=== PATIENT | female | born 1950 | race Caucasian/White ===

== ENCOUNTER 2017-09-22 19:12 | Inpatient (IN) ==
--- NOTE | 2017-09-23 01:05 | Internal Med History&Physical ---
<Laly Moreno H - Last Filed: 09/23/17 01:09> Date of Encounter: 09/23/17 Time of Encounter: 01:03 Internal Medicine - H&P: HPI Chief complaint: abdominal pain Admitted From: Emergency Dept Plans for Post Hospital Care: Home History of present illness: Ms. Guerra is a 67 year old female with past medical history of HLD, HTN, and migraines who presents to [facility] on 09/22/2017 as a transfer from [facility] emergency department. Per patient, she states she was visiting her father on Thursday and they were eating out. She developed acute onset squeezing chest pain and shortness of breath which quickly evolved into a burning feeling in her stomach. She became nauseated and began to vomit up emesis that she describes as a black milkshake. She states her stomach felt incredibly bloated at that time. She reports nausea and vomiting all throughout Thursday evening. Thursday morning she awoke, the nausea and vomiting had resolved however she had persistent abdominal pain. Her pain is described as a burning sensation and persisted throughout the day Thursday and Thursday. She was able to get into a doctor's appointment with Dr. Joy on Thursday who saw her jaundice and transferred her to the emergency department. In [facility] ED, patient's EKG showed normal sinus rhythm with a rate of 93 bpm. Troponins were negative. Patient's abnormal labs included a total bili of 10.6 , AST of 165, ALT of 460, direct bilirubin of 6.23, alkaline phosphatase of 146. Her INR was 1.2 and lactic acid 1.09. Sodium 134, Potassium 2.8, Chloride 91, Bicarb 31, creatinine 0.70. Urinalysis showed large blood, 5-10 RBCs per high-power field, and large leukocyte esterase. She underwent an MRCP which demonstrated choledocholithiasis with marked dilation of the common bile duct and common hepatic duct as well as mild dilation of the central intrahepatic bile duct. Patient was given a bolus of fluid, IV Zosyn, and had her potassium repleted. Urine and blood cultures were obtained while at [facility]. Subsequently, patient was transferred to a [facility]. Currently, patient denies any chest pain, palpitations, shortness of breath, or diaphoresis. She denies any diarrhea, nausea, vomiting, hematemesis, coffee- ground emesis, or hematochezia. She does report gross hematuria but denies dysuria, urinary frequency or urinary incontinence. She denies any focal neurological weakness or headaches. She denies any dizziness, lightheadedness, or vertigo. Past Med Surg Social Fam HX - Past Medical History Attestation: Yes The following information was validated with the patient. Source: patient, old records reviewed Medical history: cancer, hyperlipidemia, hypertension, other Psychiatric history: no psych history - Past Surgical History Surgical History: appendectomy, cancer surgery, cholecystectomy, hysterectomy - Social History Smoking Status: Never smoker Alcohol use: none Drug use: none Internal Medicine - H&P: Meds Aspirin/Acetaminophen/Caffeine [Excedrin Extra Strength Caplet] 2 each PO Q6H PRN 09/22/17 [History] Bismuth Subsalicylate [Pepto-Bismol] PRN 09/22/17 [History] Hydrochlorothiazide [Microzide] 12.5 mg PO DAILY 09/22/17 [History] Loperamide HCl [Imodium A-D] 2 mg PO PRN 09/22/17 [History] Multivitamin PO DAILY 09/22/17 [History] Potassium Chloride 10 meq PO DAILY 09/22/17 [History] amLODIPine [Norvasc] 10 mg PO DAILY 09/22/17 [History] 3 Allergy/AdvReac Type Severity Reaction Status Date / Time atorvastatin [From Lipitor] Allergy Cramping Verified 09/22/17 22:05 of the Muscles Sulfa (Sulfonamide Allergy Hives Verified 09/22/17 22:05 Antibiotics) Aspertame Allergy Headache Uncoded 09/22/17 22:17 All Systems PM: A 10-system review of systems was performed and is negative for pertinent findings except as documented above in the HPI. - Constitutional Constitutional: anorexia, no chills, no fever(s), no night sweats, no weakness, no weight gain, no weight loss - EENT Eyes: no change in vision, no other visual disturbances Nose, mouth and throat: no nasal congestion, no nasal discharge - Cardiovascular Cardiovascular ROS IM: no chest pain, no claudication, no diaphoresis, no dyspnea, no dyspnea on exertion, no irregular heart rhythm, no lightheadedness, no orthopnea, no palpitations - Respiratory Respiratory: no cough, no dyspnea, no chest congestion - Gastrointestinal Gastrointestinal: abdominal pain (epigastric, upper mid abdominal pain), no coffee ground emesis, no diarrhea, no hematemesis, no hematochezia, no loose stools, no melena, no nausea, no vomiting - Musculoskeletal Musculoskeletal ROS IM: no arthralgias, no limited range of motion - Integumentary Integumentary IM: jaundice, no erythema, no rash - Neurological Neurological ROS: no abnormal gait, no abnormal movements, no confusion - Endocrine Endocrine IM: no cold intolerance, no heat intolerance - Constitutional Vitals: Temp Pulse Resp BP Pulse Ox 99.2 F 107 18 163/83 94 09/22/17 21:26 09/22/17 21:26 09/22/17 21:26 09/22/17 21:09/22/17 21:26 General appearance: Present: cooperative, A&O X 3, pleasant, no acute distress, answers questions appropriately - Head Head exam: Present: atraumatic, normocephalic - Eye Eye exam: Present: conjuntiva pink, sclera anicteric - Neck Neck exam general surgery: Present: supple, trachea midline. Absent: lymphadenopathy - Respiratory Respiratory exam: Present: CTAB. Absent: accessory muscle use, rales, rhonchi, wheezes - Cardiovascular Cardiovascular exam: Present: RRR, +S1, +S2. Absent: diastolic murmur, gallop, rubs, systolic murmur - GI/Abdominal GI/Abdominal exam: Present: normal bowel sounds, soft, tenderness (Mild mid upper abdominal tenderness.), no peritoneal signs. Absent: distended, firm, guarding Additional comments: No flank tenderness bilaterally. - Extremities Exam Extremities exam: Present: warm, radial pulses palpable and symmetrical. Absent : calf tenderness, cyanotic, pedal edema - Neurological Exam Neurological exam: Present: CN II-XII intact, oriented X3, no focal deficits. Absent: pronater drift, facial droop, speech deficit - Skin Skin exam: Present: dry, intact, warm - Assessment and plan (1) Choledocholithiasis Current Visit: Yes Status: Acute Assessment and plan: 67-year-old female with choledocholithiasis on MRCP obtained at [facility]. Patient reports cholecystectomy approximately 30 years ago. -[facility] ED physician spoke with Dr. Santiago. -Patient nothing by mouth for potential ERCP tomorrow. -IV fluids, cardiac telemetry, morning labs. -IV Toradol for pain. -IV Zosyn for antibiotic coverage for potential ascending infection. (2) Gross hematuria Current Visit: Yes Status: Acute Assessment and plan: atient with bright red urine visualized and a large amount of blood on UA at outside hospital. -Unknown etiology. Patient denying any flank tenderness or dysuria. -We will repeat urinalysis and follow-up urine culture. -Consider urology consultation. (3) HTN (hypertension) Current Visit: Yes Status: Acute Assessment and plan: Resume home medications. Qualifiers: Hypertension type: unspecified Qualified Code(s): I10 - Essential (primary ) hypertension (4) DVT prophylaxis Current Visit: Yes Status: Acute Assessment and plan: EPCDs as patient likely to have endoscopic procedure tomorrow (5) UTI (urinary tract infection) Current Visit: Yes Status: Acute Assessment and plan: Urinalysis outside hospital with large leukocyte esterase and large blood. -Follow-up urine culture. -Antibiotic coverage with IV Zosyn currently as per above with choledocolithiasis. De-escalate as necessary. Qualifiers: Urinary tract infection type: site unspecified Hematuria presence: with hematuria Qualified Code(s): N39.0 - Urinary tract infection, site not specified; R31.9 - Hematuria, unspecified; R31.9 - Hematuria, unspecified - Time Spent With Patient Total time spent is greater than 50% in coordination of care (as documented) at patient's floor/unit and/or counseling patient: <MateoAlinenhangerhard - Last Filed: 09/23/17 06:06> Date of Encounter: 09/23/17 Internal Medicine - H&P: HPI History of present illness: Ms. Guerra is a 67 year old female All Systems PM: A 10-system review of systems was performed and is negative for pertinent findings except as documented above in the HPI. - Constitutional Vitals: Temp Pulse Resp BP Pulse Ox 98.6 F 81 18 119/70 91 09/23/17 04:10 09/23/17 04:10 09/23/17 04:10 09/23/17 04:10 09/23/17 04:10 - Attending Attestation I have seen and examined this patient independently. I have discussed with resident physician Dr. Lopez regarding the management plan. Agree with the documentation. - Assessment and plan (1) Choledocholithiasis Current Visit: Yes Status: Acute (2) Gross hematuria Current Visit: Yes Status: Acute (3) HTN (hypertension) Current Visit: Yes Status: Acute Qualifiers: Hypertension type: unspecified Qualified Code(s): I10 - Essential (primary ) hypertension (4) DVT prophylaxis Current Visit: Yes Status: Acute (5) UTI (urinary tract infection) Current Visit: Yes Status: Acute Qualifiers: Urinary tract infection type: site unspecified Hematuria presence: with hematuria Qualified Code(s): N39.0 - Urinary tract infection, site not specified; R31.9 - Hematuria, unspecified; R31.9 - Hematuria, unspecified - Time Spent With Patient Total time spent is greater than 50% in coordination of care (as documented) at patient's floor/unit and/or counseling patient:
[2017-09-23] MEDS ORDERED: Naloxone 0.4 MG/ML INJ IVP PRN (01:15)
[2017-09-23] MEDS ORDERED: Ketorolac 15 MG/ML VIAL IVP PRN (01:28)
[2017-09-23] MEDS: 0.9 % Sodium Chloride 1,000 ML IVC SCH ×2 (02:08→16:59)
[2017-09-23 05:48] LABS: Basophils % 0.3 %; Eosinophils # 0.2 K/mcL (0.0-0.6); Eosinophils % 2.6 %; Hematocrit 34.9 % (35.3-44.9); Hemoglobin 11.9 g/dL (11.5-15.4); Immature Granulocytes % 0.8 % (0-4); Lymphocytes # 1.1 K/mcL (0.6-4.6); Lymphocytes % 14.5 %; Mean Corpuscular HGB Conc 34.1 g/dL (31.6-35.5); Mean Corpuscular Hemoglobin 28.6 pg (28.0-33.3); Mean Corpuscular Volume 83.9 fL (83.0-100.0); Mean Platelet Volume 9.2 fL (9.4-12.4); Monocytes # 0.8 K/mcL (0.0-1.3); Monocytes % 10.5 %; Neutrophils # 5.6 K/mcL (1.6-8.9); Platelet Count 272 K/mcL (140-400); Red Blood Count 4.16 M/mcL (3.82-4.97); Red Cell Distribution Width 14.3 % (11.5-14.5); Segmented Neutrophils % 71.3 %
[2017-09-23] MEDS ORDERED: Piperacillin/Tazobactam 3.375 GM in 0.9 % Sodium Chloride Mini Bag 100 ML IVPB SCH (06:00)
[2017-09-23 06:06] LABS: Bilirubin,Urine Large (Negative); Blood,Urine Trace (Negative); Clarity,Urine Cloudy (Clear); Color,Urine Orange (Yellow); Glucose,Urine (UA) Normal (Normal); Ketones,Urine 80 mg/dL (Negative); Leukocyte Esterase,Urine Small (Negative); Nitrite,Urine Positive (Negative); Protein,Urine Negative (Neg-Trace); Urobilinogen,Urine Normal (Normal)
[2017-09-23 06:09] LABS: Bacteria,Urine None Seen per hpf (None-Few); Hyaline Casts,Urine None Seen per lpf (None-Few); Squamous Epithelial Cell,Urine Moderate per lpf (None-Few)
[2017-09-23 06:11] LABS: Alanine Aminotransferase 317 Units/L (7-52); Albumin 3.4 g/dL (3.5-5.7); Albumin/Globulin Ratio 1.4 (1.1-2.2); Alkaline Phosphatase 123 Units/L (34-104); Aspartate Amino Transferase 120 Units/L (13-39); BUN/Creatinine Ratio 30 (6-26); Bilirubin,Total 9.5 mg/dL (0.3-1.0); Blood Urea Nitrogen 16 mg/dL (8-23); Calcium 8.4 mg/dL (8.6-10.3); Carbon Dioxide 27 mEq/L (23-29); Chloride 100 mEq/L (98-107); Globulin 2.4 g/dL (2.4-3.5); Glucose 78 mg/dL (70-105); Osmolality,Calculated 286 (280-300); Phosphorous 2.3 mg/dL (2.7-4.5); Potassium 2.7 mEq/L (3.5-5.1); Sodium 138 mEq/L (136-145); Total Protein 5.8 g/dL (6.4-8.9); eGFR For African Americans > 60 (> 60); eGFR For Non-African Americans > 60 (> 60)
[2017-09-23] MEDS ORDERED: Potassium Chloride 40 MEQ, Lidocaine 1% 2 ML in D5% in Water 500 ML IVPB ONE (06:45)
[2017-09-23 07:08] LABS: INR 1.2; Prothrombin Time 13.1 Seconds (9.4-12.1)
[2017-09-23 07:10] LABS: Activated Partial Thrombo Time 28.5 Seconds (26.0-36.0)
[2017-09-23] MEDS: amLODIPine 5 MG TABLET PO SCH ×2 (08:39→11:23)
[2017-09-23] MEDS: hydroCHLOROthiazide 25 MG TABLET PO SCH ×2 (08:39→11:23)
--- NOTE | 2017-09-23 12:24 | Gastroenterology Consult Note ---
<Mariann Flannery - Last Filed: 09/23/17 13:09> Date of Encounter: 09/23/17 Time of Encounter: 10:15 - Assessment and plan (1) Choledocholithiasis Current Visit: Yes Status: Acute Assessment and plan: Pt presents with abdominal pain, nausea and vomiting. Liver ultrasound shows CBD dilation, and LFTs are elevated. She needs ERCP to evaluate CBD for blockage /obstruction with possible stent, will plan for today. (2) Hypokalemia Current Visit: Yes Status: Acute Assessment and plan: Likely due to vomiting and poor appetite. Pt was advised that k+ needs to be > 3 before procedure. She is receiving 40 rachel iV with give 40 po and recheck, May need 40 meq more IV preop. - Time Spent With Patient Total time spent is greater than 50% in coordination of care (as documented) at patient's floor/unit and/or counseling patient: GI History of Present Illness - Data of Consult Patient: new to practice Consult date: 09/23/17 Requesting Physician: Haresh Lockwood MD - Consult Narrative Reason for consult: choledocholithiasis History of present illness: Ms. Guerra is a 67 year old female with past medical history of HLD, HTN, and migraines who presents to [facility] on 09/22/2017 as a transfer from [facility] emergency department. After eating on Thursday she developed acute onset squeezing chest pain and shortness of breath which quickly evolved into a burning feeling in her stomach. She became nauseated and began to vomit up emesis that she describes as a black milkshake. She states her stomach felt incredibly bloated at that time. She reports nausea and vomiting all throughout Thursday evening. Thursday morning she awoke, the nausea and vomiting had resolved however she had persistent abdominal pain. Her pain is described as a burning sensation and persisted throughout the day Thursday and Thursday. She was able to get into a doctor's appointment with Dr. Joy on Thursday who saw her jaundice and transferred her to the emergency department. In [facility] ED, patient's EKG showed normal sinus rhythm with a rate of 93 bpm. Troponins were negative. Patient's abnormal labs included a total bili of 10.6, AST of 165, ALT of 460, direct bilirubin of 6.23, alkaline phosphatase of 146. Her INR was 1.2 and lactic acid 1.09. Sodium 134, Potassium 2.8, Chloride 91, Bicarb 31, creatinine 0.70. Urinalysis showed large blood, 5-10 RBCs per high-power field , and large leukocyte esterase. She underwent an MRCP which demonstrated choledocholithiasis with marked dilation of the common bile duct and common hepatic duct as well as mild dilation of the central intrahepatic bile duct. Patient was given a bolus of fluid, IV Zosyn, and had her potassium repleted. Urine and blood cultures were obtained while at [facility]. Subsequently, patient was transferred to a [facility]. Currently, patient denies any chest pain, palpitations, shortness of breath, or diaphoresis, she states she has not had any abdominal pain since being NPO. She denies any further diarrhea, nausea, vomiting, hematemesis, coffee-ground emesis, or hematochezia. She does report gross hematuria. She denies any dizziness, lightheadedness, or vertigo. She admits to taking excedrine at least once a day for at least the past week and takes asa on occasion for pain. EGD: denies Colonoscopy: 8-10 years ago [facility], normal per pts reports NSAIDS: toradol Anticoagulants: denies Past Med Surg Social Fam HX - Past Medical History Medical history: cancer, hyperlipidemia, hypertension, other Psychiatric history: no psych history - Past Surgical History Surgical History: appendectomy, cancer surgery, cholecystectomy, hysterectomy - Social History Smoking Status: Never smoker Alcohol use: none Drug use: none Review of Systems: GI: as per [facility]: denies fever or chills EYES: yellow discoloration ENT: denies pain with swallowing or difficulty swallowing CARDIO: denies chest pain, palpitations RESP: No Shortness of breath with exertion : hemataturia NEURO: denies any weakness HEME: Denies any bruising MS: chroni joint pain DERM: denies rash or itching PSYCH: Denies history of anxiety or depression - Constitutional Vitals: Temp Pulse Resp BP Pulse Ox 98.7 F 83 16 121/78 97 09/23/17 11:00 09/23/17 11:00 09/23/17 11:00 09/23/17 11:00 09/23/17 11:00 Exam: CONSTITUTIONAL:~alert, no acute distress.~HEAD:~normocephalic.~EYES:~jaundice.~ NECK:~no obvious swelling.~HEART:~regular rate and rhythm, no murmurs.~LUNGS:~ bilateral fair air entry.~ABDOMEN:~non distended, soft, tender upper quadrants, masses pulpable, no organomegaly.~RECTAL EXAM:~Deferred.~EXTREMITIES:~no clubbing, cyanosis or edema.~SKIN:~jaundice noted.~NEUROLOGIC:~no obvious focal defect.~~~~ Results - Labs CBC & Chem 7: 09/23/17 05:22 09/23/17 05:22 Labs: Last Result Calcium 8.4 mg/dL (8.6-10.3) L 09/23/17 05:22 Entire Visit Hgb 11.9 g/dL (11.5-15.4) 09/23/17 05:22 Hct 34.9 % (35.3-44.9) L 09/23/17 05:22 PT 13.1 Seconds (9.4-12.1) H 09/23/17 05:22 Total Bilirubin 9.5 mg/dL (0.3-1.0) H 09/23/17 05:22 AST 120 Units/L (13-39) H 09/23/17 05:22 ALT 317 Units/L (7-52) H 09/23/17 05:22 - ABG ABG results: PT/INR, D-dimer PT 13.1 Seconds (9.4-12.1) H 09/23/17 05:22 Consult Discharge Plan - Plan Referrals: Flavio Nieto MD [Primary Care Provider] - 10/05/17 11:30 am <Rajesh Santiago - Last Filed: 09/23/17 20:41> Date of Encounter: 09/23/17 Time of Encounter: 17:00 - Time Spent With Patient Total time spent is greater than 50% in coordination of care (as documented) at patient's floor/unit and/or counseling patient: GI History of Present Illness - Data of Consult Requesting Physician: Haresh Lockwood MD - Consult Narrative History of present illness: Ms. Guerra is a 67 year old female - Constitutional Vitals: Temp Pulse Resp BP Pulse Ox 98.5 F 89 15 132/85 94 09/23/17 20:38 09/23/17 20:38 09/23/17 20:38 09/23/17 20:38 09/23/17 20:38 Results - Labs CBC & Chem 7: 09/23/17 05:22 09/23/17 13:12 Labs: Last Result Calcium 8.4 mg/dL (8.6-10.3) L 09/23/17 05:22 Entire Visit Hgb 11.9 g/dL (11.5-15.4) 09/23/17 05:22 Hct 34.9 % (35.3-44.9) L 09/23/17 05:22 PT 13.1 Seconds (9.4-12.1) H 09/23/17 05:22 Total Bilirubin 9.5 mg/dL (0.3-1.0) H 09/23/17 05:22 AST 120 Units/L (13-39) H 09/23/17 05:22 ALT 317 Units/L (7-52) H 09/23/17 05:22 - ABG ABG results: PT/INR, D-dimer PT 13.1 Seconds (9.4-12.1) H 09/23/17 05:22 - Attending Attestation I have personally performed a face to face evaluation on this patient. I have reviewed and agree with the care plan. History and Exam by me shows: Patient seen. Patient is deeply jaundice. MRCP at the outside facility showed CBD stone. Recommendation: ERCP procedure including risks explained to the patient
--- NOTE | 2017-09-23 16:28 | Anesthesia Evaluation PreOp ---
Date of Encounter: 09/23/17 Time of Encounter: 16:26 - Past History Planned Operation: ERCP re: choledocholithiasis Cardiac History: HTN (maintained on HCtz, Norvasc), Hyperlipidemia Pulmonary History: Denies Any Significant HX ELECTRICAL HIGH TENSION TESTER History: Denies Any Significant HX Other Medical History: Renal (UTI w/hematuria this admission) Anesthesia History: No Prior Anesthetic Complications, Past Anesthesia (Appy, Edel, Hyster, Cancer surgery) Alcohol Use: none Drug use: none Medications and Allergies Amlodipine Besylate [Amlodipine Besylate] 10 mg PO DAILY 09/23/17 [History] Loperamide HCl [Imodium A-D] 2 mg PO DAILY PRN 09/23/17 [History] Multivit-Min/FA/Lycopen/Lutein [A Thru Z Select Multivit Tab] 1 tab PO DAILY [History] Potassium Chloride [K-Tab ER] 20 meq PO DAILY 09/23/17 [History] hydroCHLOROthiazide [Hydrochlorothiazide] 25 mg PO DAILY 09/23/17 [History] 3 Allergy/AdvReac Type Severity Reaction Status Date / Time atorvastatin [From Lipitor] Allergy Cramping Verified 09/22/17 22:05 of the Muscles Sulfa (Sulfonamide Allergy Hives Verified 09/22/17 22:05 Antibiotics) Aspertame Allergy Headache Uncoded 09/22/17 22:17 - Meds/Allergy Pre-op Review Medications Reviewed: Yes Allergies Reviewed: Yes Beta Blockers on Current Med List: No Anesthesia Results - Labs 09/23/17 05:22 09/23/17 13:12 Laboratory Results Laboratory Tests 09/23/17 09/23/17 09/23/17 05:22 05:22 13:12 PT 13.1 H INR 1.2 APTT 28.5 Sodium 138 Potassium 3.5 D Chloride 100 Carbon Dioxide 27 BUN 16 Creatinine 0.54 L Est GFR (Non-Af Amer) > 60 Glucose 78 Calcium 8.4 L Phosphorus 2.3 L Magnesium 2.0 Anesthesia Exam Vital Signs Temp Pulse Resp BP Pulse Ox 09/23/17 15:50 98.3 F 73 16 131/78 95 09/23/17 11:00 98.7 F 83 16 121/78 97 09/23/17 07:17 98.6 F 82 16 118/73 92 09/23/17 04:10 98.6 F 81 18 119/70 91 09/22/17 21:26 99.2 F 107 18 163/83 94 Intake and Output 09/23/17 09/23/17 09/23/17 07:59 15:59 23:59 Intake Total 465 / 465 Output Total 120 / 120 Balance 345 / 345 Intake: IV Fluids 465 / 465 KCl 40 MEQ Xylocaine 2 ML In 465 / 465 Dextrose 5% 500 ML @ 130.5 mls/ hr IVPB ONCE ONE Rx#:[id number] Oral 0 / 0 Output: Urine 120 / 120 Other: Meal npo Weight 74 kg Patient Weight 09/23/17 23:59 Weight 74 kg Height: 5'3" Weight: 163# BMI = 29 NPO (# of Hours): MNOc - HEENT Pupil (Motor): Pupils equal, EOMI Mallampati: II Teeth: Missing, Poor dentition Oral Opening: Greater than 3 - ELECTRICAL HIGH TENSION TESTER LOC: Oriented ELECTRICAL HIGH TENSION TESTER Motor: Normal RUE, Normal LUE, Normal RLE, Normal LLE, Normal Face ELECTRICAL HIGH TENSION TESTER Sensory: Normal: RUE, LUE, RLE, LLE, Face - Cardiac Rhythm: Regular Murmur: None - Pulmonary Breath Sounds: bilateral Clear Respiratory Effort: Symmetrical Anesthesia Assess/Plan ASA Score: 3 Modified Post Scale for Level of Consciousness: Cooperative, oriented, and tranquil Anesthetic Plan: General Monitoring Plan: Standard Monitors Recovery Plan: PACU Anes Supervising Prov Stmt: Pt seen/evaluated, R&B discussed, questions answered and consent obtained. Danay Ryder MD
[2017-09-23] MEDS: Piperacillin/Tazobactam 3.375 GM in 0.9 % Sodium Chloride Mini Bag 100 ML IVPB SCH ×2 (17:00→23:59)
[2017-09-23] MEDS ORDERED: *HR* Propofol 200 MG/20 ML VIAL IVP ONE (17:11)
[2017-09-23] MEDS ORDERED: *HR* Succinylcholine 200 MG/10 ML VIAL IVP ONE (17:11)
[2017-09-23] MEDS ORDERED: Dexamethasone 4 MG/ML VIAL ONE (17:11)
[2017-09-23] MEDS ORDERED: Ondansetron 4 MG/2 ML VIAL ONE (17:11)
[2017-09-23] MEDS ORDERED: *HR* FentaNYL (PF) 100 MCG/2 ML VIAL ONE (17:11)
[2017-09-23] MEDS ORDERED: Lidocaine -MPF 2% 2 ML VIAL ONE (17:12)
[2017-09-23] MEDS ORDERED: *HR* Etomidate 40 MG/20 ML VIAL IVP ONE (17:13)
[2017-09-23] MEDS ORDERED: Lidocaine -MPF 4% 5 ML AMPUL ONE (17:14)
[2017-09-23] MEDS ORDERED: *HR* Labetalol 20 MG/4 ML SYRINGE IVP PRN (17:24)
[2017-09-23] MEDS ORDERED: *HR* PHENYLEPHRINE 1,000 MCG/10 ML SYRINGE IVP ONE (17:30)
[2017-09-23] MEDS ORDERED: EPHEDrine 50 MG/ML VIAL ONE (17:45)
--- NOTE | 2017-09-23 20:09 | Anesthesia Evaluation Post Op ---
Date of Encounter: 09/23/17 Time of Encounter: 20:10 - Vital Signs Vital Signs: Vital Signs/O2 Sat/Glucose, Most Current Temp Pulse Resp BP Pulse Ox 09/23/17 20:05 97.4 F L 92 16 138/83 95 09/23/17 19:55 90 16 141/85 94 09/23/17 19:45 96 16 122/83 96 09/23/17 19:35 97.4 F L 92 16 132/78 92 09/23/17 17:05 86 16 134/74 94 - Lungs Lungs: Clear Ascult./Percussion - Airway Airway: Non-obstructed - Cardiovascular Regular Rate - Mental Status Mental Status: Alert & Oriented, Answers Appropriately - Pain Pain Scale: 0 - Nausea Vomiting Nausea Vomiting: Not Present - Hydration Hydration: Ice chips - Discharge PostOp Status: Transfer Patient to floor
--- NOTE | 2017-09-23 23:30 | Event Note ---
Date of Encounter: 09/23/17 Time of Encounter: 10:57 S: Patient had no acute events overnight. No pain this AM. She denies nausea, vomiting, or changes in bowel. O: Gen - Awake, alert, well-nourished, no acute distress HEENT - NCAT, PERRLA, EOMI, hearing grossly intact, oropharynx benign CV - RRR, normal S1 and S2, no M/R/G, no BLE edema Resp - Normal WOB, CTAB, no W/R/R GI - Soft, NT/ND, no masses, normal bowel sounds, no HSP Skin - Warm, dry, no rashes/lesions/ulcers Psych - Normal mood and affect, no depression or anxiety A/P: 1) Choledocholithiasis - GI consulted; appreciate input. Plan for ERCP. Continue NPO, IVF, and IV zosyn. 2) Hypokalemia - Replete potassium. Recheck BMP in AM. 3) UTI/Hematuria - Continue IV zosyn. Follow up urine culture. Consider urology consult if no improvement.
--- NOTE | 2017-09-24 05:15 | Event Note ---
Date of Encounter: 09/24/17 Time of Encounter: 04:00 Pt c/o abd pain s/p ERCP. CT abd shows pancrease inflammation. Consider pancreatitis?. Check lipase. Start pt on NPO and IVF now.
[2017-09-24 05:31] LABS: Basophils % 0.1 %; Hematocrit 38.6 % (35.3-44.9); Hemoglobin 12.9 g/dL (11.5-15.4); Immature Granulocytes % 0.5 % (0-4); Lymphocytes # 0.5 K/mcL (0.6-4.6); Lymphocytes % 5.4 %; Mean Corpuscular HGB Conc 33.4 g/dL (31.6-35.5); Mean Corpuscular Hemoglobin 28.5 pg (28.0-33.3); Mean Corpuscular Volume 85.2 fL (83.0-100.0); Mean Platelet Volume 9.6 fL (9.4-12.4); Monocytes # 0.4 K/mcL (0.0-1.3); Monocytes % 4.3 %; Neutrophils # 8.4 K/mcL (1.6-8.9); Platelet Count 328 K/mcL (140-400); Red Blood Count 4.53 M/mcL (3.82-4.97); Red Cell Distribution Width 14.1 % (11.5-14.5); Segmented Neutrophils % 89.7 %
[2017-09-24] MEDS: 0.9 % Sodium Chloride 1,000 ML IVC SCH ×2 (05:42→15:01)
[2017-09-24 06:05] LABS: BUN/Creatinine Ratio 29 (6-26); Blood Urea Nitrogen 15 mg/dL (8-23); Calcium 8.6 mg/dL (8.6-10.3); Carbon Dioxide 27 mEq/L (23-29); Chloride 100 mEq/L (98-107); Glucose 152 mg/dL (70-105); Lipase > 1800 Units/L (11-82); Osmolality,Calculated 286 (280-300); Potassium 3.7 mEq/L (3.5-5.1); Sodium 136 mEq/L (136-145); eGFR For African Americans > 60 (> 60); eGFR For Non-African Americans > 60 (> 60)
[2017-09-24] MEDS: Piperacillin/Tazobactam 3.375 GM in 0.9 % Sodium Chloride Mini Bag 100 ML IVPB SCH ×2 (08:30→15:07)
[2017-09-24] MEDS ORDERED: Acetaminophen 325 MG TABLET PO PRN (08:41)
[2017-09-24] MEDS: Ondansetron 4 MG/2 ML VIAL IVP PRN ×2 (08:44→13:37)
[2017-09-24] MEDS: *HR* HYDROcodone/Acet 7.5/325 mg TABLET PO PRN ×2 (08:53→15:24)
[2017-09-24 09:14] LABS: Alanine Aminotransferase 272 Units/L (7-52); Albumin 3.4 g/dL (3.5-5.7); Albumin/Globulin Ratio 1.2 (1.1-2.2); Alkaline Phosphatase 124 Units/L (34-104); Aspartate Amino Transferase 101 Units/L (13-39); Bilirubin,Direct 5.4 mg/dL (0.0-0.2); Bilirubin,Indirect 2.3 mg/dL (0.0-1.2); Bilirubin,Total 7.7 mg/dL (0.3-1.0); Globulin 2.9 g/dL (2.4-3.5); Total Protein 6.3 g/dL (6.4-8.9)
[2017-09-24] MEDS ORDERED: Ketorolac 15 MG/ML VIAL IVP PRN (10:25)
--- NOTE | 2017-09-24 11:55 | Gastroenterology Progress Note ---
<Mariann Flannery - Last Filed: 09/24/17 11:53> Date of Encounter: 09/24/17 Time of Encounter: 10:00 - Assessment and plan (1) Choledocholithiasis Current Visit: Yes Status: Acute Assessment and plan: S/p ERCP with 2 stents placed. She had increased abdominal pain and elevated lipase overnight. She remains NPO, IVF are at 125 ml/hr. Monitor labs, will discuss with Dr Santiago. (2) Hypokalemia Current Visit: Yes Status: Acute Assessment and plan: resolved - Time Spent With Patient Total time spent is greater than 50% in coordination of care (as documented) at patient's floor/unit and/or counseling patient: - Subjective Interval history: Pt is s/p ERCP yesterday. She had increased abdominal pain over night. She is still NPO, and IVF are infusing at 125 ml/hr. LFTs are improving. She denies nausea and vomiting. She denies diarrhea or constipation. - Constitutional Vitals: Temp Pulse Resp BP Pulse Ox 98.5 F 75 16 136/80 93 09/24/17 10:44 09/24/17 10:44 09/24/17 10:44 09/24/17 10:44 09/24/17 10:44 Exam: CONSTITUTIONAL:~alert, no acute distress.~HEAD:~normocephalic.~EYES:~no jaundice.~NECK:~no obvious swelling.~HEART:~regular rate and rhythm, no murmurs. ~LUNGS:~bilateral good air entry, no crackles or rhonhi.~ABDOMEN:~non distended , soft, tender, no masses pulpable, no organomegaly.~RECTAL EXAM:~Deferred.~ EXTREMITIES:~no clubbing, cyanosis or edema.~SKIN:~jaundice noted.~NEUROLOGIC:~ no obvious focal defect.~~~~ Results - Labs CBC & Chem 7: 09/24/17 04:30 09/24/17 04:30 Labs: Last Result Calcium 8.6 mg/dL (8.6-10.3) 09/24/17 04:30 Entire Visit Hgb 12.9 g/dL (11.5-15.4) 09/24/17 04:30 Hct 38.6 % (35.3-44.9) 09/24/17 04:30 PT 13.1 Seconds (9.4-12.1) H 09/23/17 05:22 Total Bilirubin 7.7 mg/dL (0.3-1.0) H 09/24/17 04:30 AST 101 Units/L (13-39) H 09/24/17 04:30 ALT 272 Units/L (7-52) H 09/24/17 04:30 Lipase > 1800 Units/L (11-82) H 09/24/17 04:30 - ABG ABG results: PT/INR, D-dimer PT 13.1 Seconds (9.4-12.1) H 09/23/17 05:22 - Impressions Impressions Cath/Invasive Procedure 09/23/17 00:00 IMPRESSION: Deployment of 2 common bile duct stent. Please refer to the procedure report for further details. D/ / Adan Thakur MD / Adan Thakur MD Interpreting Provider: Adan Thakur MD Abdomen/Pelvis CT 09/24/17 02:01 IMPRESSION: Interstitial edematous pancreatitis with diffuse peripancreatic inflammatory stranding and small amount of fluid. Cannot exclude underlying pancreatic necrosis on noncontrast evaluation. Appropriate biliary stent positioning with mild pneumobilia. Indeterminate exophytic right renal lesion. Recommend further evaluation with renal ultrasound if comparison imaging is not available for review. 10 mm middle lobe nodule. Comparison imaging is helpful if available. Otherwise recommend follow-up CT chest in 3 months. RECOMMENDATIONS: Fleischner Society guidelines for follow-up and management of incidentally detected pulmonary nodules: Single Solid Nodule: Nodule size greater than 8 mm In a low-risk patient, consider CT at 3 months In a high-risk patient, consider CT at 3 months - Low risk patients include individuals with minimal or absent history of smoking and other known risk factors. - High risk patients include individuals with a history or smoking or known risk factors. Radiology 2017 http://pubs.rsna.org/doi/full/10.1148/radiol.1991057169 D/ / 09/24/2017 08:14:10 Jacob Desir / edda Interpreting Provider: Jacob Desir - VTE Documentation of Mechanical Device: Intermittent pneumatic compression device Consult Discharge Plan - Plan Referrals: Flavio Nieto MD [Primary Care Provider] - 10/05/17 11:30 am <Rajesh Santiago - Last Filed: 09/24/17 18:41> Date of Encounter: 09/24/17 Time of Encounter: 17:30 - Time Spent With Patient Total time spent is greater than 50% in coordination of care (as documented) at patient's floor/unit and/or counseling patient: - Constitutional Vitals: Temp Pulse Resp BP Pulse Ox 97.7 F 80 16 145/78 93 09/24/17 15:17 09/24/17 15:17 09/24/17 15:17 09/24/17 15:17 09/24/17 15:17 Results - Labs CBC & Chem 7: 09/24/17 04:30 09/24/17 04:30 Labs: Last Result Calcium 8.6 mg/dL (8.6-10.3) 09/24/17 04:30 Entire Visit Hgb 12.9 g/dL (11.5-15.4) 09/24/17 04:30 Hct 38.6 % (35.3-44.9) 09/24/17 04:30 PT 13.1 Seconds (9.4-12.1) H 09/23/17 05:22 Total Bilirubin 7.7 mg/dL (0.3-1.0) H 09/24/17 04:30 AST 101 Units/L (13-39) H 09/24/17 04:30 ALT 272 Units/L (7-52) H 09/24/17 04:30 Lipase > 1800 Units/L (11-82) H 09/24/17 04:30 - ABG ABG results: PT/INR, D-dimer PT 13.1 Seconds (9.4-12.1) H 09/23/17 05:22 - Impressions Impressions Cath/Invasive Procedure 09/23/17 00:00 IMPRESSION: Deployment of 2 common bile duct stent. Please refer to the procedure report for further details. D/ / Adan Thakur MD / Adan Thakur MD Interpreting Provider: Adan Thakur MD Abdomen/Pelvis CT 09/24/17 02:01 IMPRESSION: Interstitial edematous pancreatitis with diffuse peripancreatic inflammatory stranding and small amount of fluid. Cannot exclude underlying pancreatic necrosis on noncontrast evaluation. Appropriate biliary stent positioning with mild pneumobilia. Indeterminate exophytic right renal lesion. Recommend further evaluation with renal ultrasound if comparison imaging is not available for review. 10 mm middle lobe nodule. Comparison imaging is helpful if available. Otherwise recommend follow-up CT chest in 3 months. RECOMMENDATIONS: Fleischner Society guidelines for follow-up and management of incidentally detected pulmonary nodules: Single Solid Nodule: Nodule size greater than 8 mm In a low-risk patient, consider CT at 3 months In a high-risk patient, consider CT at 3 months - Low risk patients include individuals with minimal or absent history of smoking and other known risk factors. - High risk patients include individuals with a history or smoking or known risk factors. Radiology 2017 http://pubs.rsna.org/doi/full/10.1148/radiol.7780236651 D/ / 09/24/2017 08:14:10 Jacob Desir / edda Interpreting Provider: Jacob Desir - Attending Attestation I have personally performed a face to face evaluation on this patient. I have reviewed and agree with the care plan. History and Exam by me shows: Patient seen. Complaining of abdominal pain but per patient pain is better than this morning. Patient had an ERCP done yesterday with finding of cholangitis and very large amount of CBD stone with complete obstruction. Status post removal of the stones along with placement of 2 stents. LFTs are improving. Does has post-ERCP pancreatitis. Recommendation: Nothing by mouth for now IV fluid. Continue antibiotics
[2017-09-24] MEDS: Simethicone 40 MG/0.6 ML MLS PO PRN ×2 (13:27→16:52)
[2017-09-24] MEDS: hydroCHLOROthiazide 25 MG TABLET PO SCH (13:38)
[2017-09-24] MEDS: amLODIPine 5 MG TABLET PO SCH (13:38)
[2017-09-24] MEDS: Multivit/Ca/Min/Fe/FA 1 TAB TABLET PO SCH (13:39)
[2017-09-24] MEDS: *HR* FentaNYL (PF) 100 MCG/2 ML VIAL IVP PRN ×2 (15:01→23:38)
[2017-09-24] MEDS: cefTRIAXone 2,000 MG in Water for inj. (sterile) 20 ML 20 ML IVP SCH (20:23)
--- NOTE | 2017-09-24 22:00 | Internal Med Progress Note ---
Date of Encounter: 09/24/17 Time of Encounter: 14:17 - Assessment and plan (1) Choledocholithiasis Current Visit: Yes Status: Acute Assessment and plan: Still in considerable pain; improved with new pain regimen. GI consulted; appreciate input. S/P ERCP with 2 stents. Continue HPO, IVF, and telemetry. Will discontinue zosyn and continue rocephin per GI recommendations. Discontinue toradol due to starting lovenox. Start tylenol, norco, and fentanyl IV PRN for pain. Treating gas pain as per below. (2) Abdominal gas pain Current Visit: Yes Status: Acute Assessment and plan: Start simethicone PRN gas. (3) Pancreatitis Current Visit: Yes Status: Suspected Assessment and plan: GI consulted; appreciate input. Continue NPO, IVF, and pain control as per above. Qualifiers: Chronicity: acute Pancreatitis type: biliary Acute pancreatitis complication: unspecified Qualified Code(s): K85.10 - Biliary acute pancreatitis without necrosis or infection (4) Gross hematuria Current Visit: Yes Status: Resolved Assessment and plan: No further episodes at this time. Treating presumed UTI as per below. (5) Acute cystitis with hematuria Current Visit: Yes Status: Acute Assessment and plan: Continue rocephin as per above. Follow up on urine culture. (6) HTN (hypertension) Current Visit: Yes Status: Chronic Assessment and plan: Continue home medications. Qualifiers: Hypertension type: unspecified Qualified Code(s): I10 - Essential (primary ) hypertension (7) DVT prophylaxis Current Visit: Yes Status: Acute Assessment and plan: Continue SCDs. Start lovenox 40 mg SQ QD. - Time Spent With Patient Total time spent is greater than 50% in coordination of care (as documented) at patient's floor/unit and/or counseling patient: less than 15 minutes - Subjective Interval history: Patient had episode of severe abdominal pain last night. CT abdomen showed inflammation of pancreas; possible pancreatitis. Lipase was elevated. She was made NPO, given IVF, and toradol. This morning she still has pain, so ordered Tylenol, [place], and fentanyl IV PRN for pain. She also complains of some gas; simethicone ordered. Some zofran was also ordered for nausea. She denies chest pain, SOB, fever, or chills. - Constitutional Vitals: Temp Pulse Resp BP Pulse Ox 98.9 F 81 16 144/81 94 09/24/17 20:16 09/24/17 20:16 09/24/17 20:16 09/24/17 20:16 09/24/17 20:29 General appearance: Present: cooperative, A&O X 3, pleasant, no acute distress, answers questions appropriately - Respiratory Respiratory exam: Present: CTAB. Absent: accessory muscle use, rales, rhonchi, wheezes Additional comments: Normal WOB - Cardiovascular Cardiovascular exam: Present: RRR, +S1, +S2. Absent: diastolic murmur, gallop, rubs, systolic murmur Additional comments: No BLE edema - GI/Abdominal GI/Abdominal exam: Present: normal bowel sounds, soft. Absent: distended, guarding, hepatomegaly, mass, rebound, splenomegaly Additional comments: Moderate TTP across entire abdomen, worse in RUQ - Psychiatric Psychiatric exam: Present: normal affect, normal mood. Absent: agitated, anxious, depressed - Skin Skin exam: Present: dry, intact, warm. Absent: cyanosis, rash Internal Medicine: Result - Labs CBC & Chem 7: 09/24/17 04:30 09/24/17 04:30 Labs: Short CBC 09/24/17 Range/Units 04:30 WBC 9.3 (4.3-11.1) K/mcL Hgb 12.9 (11.5-15.4) g/dL Hct 38.6 (35.3-44.9) % Plt Count 328 (140-400) K/mcL Neutrophils # 8.4 (1.6-8.9) K/mcL BMP 09/24/17 04:30 Sodium 136 Potassium 3.7 Chloride 100 Carbon Dioxide 27 BUN 15 Creatinine 0.52 L Glucose 152 H Calcium 8.6 Liver Function 09/24/17 Range/Units 04:30 Total Bilirubin 7.7 H (0.3-1.0) mg/dL Direct Bilirubin 5.4 H (0.0-0.2) mg/dL AST 101 H (13-39) Units/L ALT 272 H (7-52) Units/L Alkaline Phosphatase 124 H (34-104) Units/L Albumin 3.4 L (3.5-5.7) g/dL - ABG Interpretation ABG results: PT/INR, D-dimer PT 13.1 Seconds (9.4-12.1) H 09/23/17 05:22 - Impressions Impressions Cath/Invasive Procedure 09/23/17 00:00 IMPRESSION: Deployment of 2 common bile duct stent. Please refer to the procedure report for further details. D/ / Adan Thakur MD / Adan Thakur MD Interpreting Provider: Adan Thakur MD Abdomen/Pelvis CT 09/24/17 02:01 IMPRESSION: Interstitial edematous pancreatitis with diffuse peripancreatic inflammatory stranding and small amount of fluid. Cannot exclude underlying pancreatic necrosis on noncontrast evaluation. Appropriate biliary stent positioning with mild pneumobilia. Indeterminate exophytic right renal lesion. Recommend further evaluation with renal ultrasound if comparison imaging is not available for review. 10 mm middle lobe nodule. Comparison imaging is helpful if available. Otherwise recommend follow-up CT chest in 3 months. RECOMMENDATIONS: Fleischner Society guidelines for follow-up and management of incidentally detected pulmonary nodules: Single Solid Nodule: Nodule size greater than 8 mm In a low-risk patient, consider CT at 3 months In a high-risk patient, consider CT at 3 months - Low risk patients include individuals with minimal or absent history of smoking and other known risk factors. - High risk patients include individuals with a history or smoking or known risk factors. Radiology 2017 http://pubs.rsna.org/doi/full/10.1148/radiol.5452419353 D/ / 09/24/2017 08:14:10 Jacob Desir / edda Interpreting Provider: Jacob Desir Consult Discharge Plan - Plan Referrals: Flavio Nieto MD [Primary Care Provider] - 10/05/17 11:30 am
[2017-09-25] MEDS: *HR* Enoxaparin 40 MG/0.4 ML SYRINGE SQ SCH ×2 (00:40→06:06)
[2017-09-25] MEDS: Ondansetron 4 MG/2 ML VIAL IVP PRN ×3 (01:44→22:59)
[2017-09-25] MEDS: Simethicone 40 MG/0.6 ML MLS PO PRN ×2 (01:47→15:29)
[2017-09-25] MEDS: *HR* HYDROcodone/Acet 7.5/325 mg TABLET PO PRN ×4 (04:20→22:59)
[2017-09-25 05:56] LABS: Basophils % 0.1 %; Eosinophils % 0.2 %; Hematocrit 35.8 % (35.3-44.9); Hemoglobin 12.1 g/dL (11.5-15.4); Immature Granulocytes % 0.8 % (0-4); Lymphocytes # 0.9 K/mcL (0.6-4.6); Lymphocytes % 4.6 %; Mean Corpuscular HGB Conc 33.8 g/dL (31.6-35.5); Mean Corpuscular Hemoglobin 29.1 pg (28.0-33.3); Mean Corpuscular Volume 86.1 fL (83.0-100.0); Mean Platelet Volume 9.5 fL (9.4-12.4); Monocytes # 1.1 K/mcL (0.0-1.3); Monocytes % 5.2 %; Neutrophils # 18.2 K/mcL (1.6-8.9); Platelet Count 308 K/mcL (140-400); Red Blood Count 4.16 M/mcL (3.82-4.97); Red Cell Distribution Width 14.2 % (11.5-14.5); Segmented Neutrophils % 89.1 %
[2017-09-25] MEDS: *HR* FentaNYL (PF) 100 MCG/2 ML VIAL IVP PRN ×3 (06:09→19:26)
[2017-09-25 06:11] LABS: BUN/Creatinine Ratio 43 (6-26); Blood Urea Nitrogen 13 mg/dL (8-23); Calcium 8.2 mg/dL (8.6-10.3); Carbon Dioxide 26 mEq/L (23-29); Chloride 99 mEq/L (98-107); Glucose 90 mg/dL (70-105); Osmolality,Calculated 280 (280-300); Potassium 2.9 mEq/L (3.5-5.1); Sodium 135 mEq/L (136-145); eGFR For African Americans > 60 (> 60); eGFR For Non-African Americans > 60 (> 60)
[2017-09-25] MEDS: hydroCHLOROthiazide 25 MG TABLET PO SCH (07:46)
[2017-09-25] MEDS: Multivit/Ca/Min/Fe/FA 1 TAB TABLET PO SCH (07:47)
[2017-09-25] MEDS: 0.9 % Sodium Chloride 1,000 ML IVC SCH ×3 (07:47→15:29)
[2017-09-25] MEDS: amLODIPine 5 MG TABLET PO SCH (07:47)
--- NOTE | 2017-09-25 09:35 | Gastroenterology Progress Note ---
<Mariann Flannery - Last Filed: 09/25/17 09:33> Date of Encounter: 09/25/17 Time of Encounter: 08:30 - Assessment and plan (1) Pancreatitis Current Visit: Yes Status: Suspected Assessment and plan: Pt had post ERCP pancreatitis. She remains NPO, and has been getting IVF. She states pain is improved. Will repeat LFTs. Continue to treat symptomatically. WBC has increased today, she remains on rocephin. Qualifiers: Chronicity: acute Pancreatitis type: biliary Acute pancreatitis complication: unspecified Qualified Code(s): K85.10 - Biliary acute pancreatitis without necrosis or infection (2) Choledocholithiasis Current Visit: Yes Status: Acute Assessment and plan: S/p ERCP with 2 stents placed. (3) Hypokalemia Current Visit: Yes Status: Acute Assessment and plan: replace as needed - Time Spent With Patient Total time spent is greater than 50% in coordination of care (as documented) at patient's floor/unit and/or counseling patient: - Subjective Interval history: Patient is sleeping in bed. She states pain is improving reports minimal pain when lying still but has pain in RUQ and gen abdomen with movement. She denies nausea or vomiting. - Constitutional Vitals: Temp Pulse Resp BP Pulse Ox 98.0 F 90 15 138/80 91 09/25/17 07:08 09/25/17 07:08 09/25/17 07:08 09/25/17 07:08 09/25/17 07:50 Exam: CONSTITUTIONAL:~alert, no acute distress.~HEAD:~normocephalic.~EYES:~mild jaundice.~NECK:~no obvious swelling.~HEART:~regular rate and rhythm, no murmurs. ~LUNGS:~bilateral good air entry.~ABDOMEN:~softly distended, soft, diffuse tenderness.~RECTAL EXAM:~Deferred.~EXTREMITIES:~no clubbing, cyanosis or edema.~ SKIN:~improving jaundice.~NEUROLOGIC:~no obvious focal defect.~~~~ Results - Labs CBC & Chem 7: 09/25/17 05:35 09/25/17 05:35 Labs: Last Result Calcium 8.2 mg/dL (8.6-10.3) L 09/25/17 05:35 Entire Visit Hgb 12.1 g/dL (11.5-15.4) 09/25/17 05:35 Hct 35.8 % (35.3-44.9) 09/25/17 05:35 PT 13.1 Seconds (9.4-12.1) H 09/23/17 05:22 Total Bilirubin 7.7 mg/dL (0.3-1.0) H 09/24/17 04:30 AST 101 Units/L (13-39) H 09/24/17 04:30 ALT 272 Units/L (7-52) H 09/24/17 04:30 Lipase > 1800 Units/L (11-82) H 09/24/17 04:30 - ABG ABG results: PT/INR, D-dimer PT 13.1 Seconds (9.4-12.1) H 09/23/17 05:22 - Impressions Impressions Cath/Invasive Procedure 09/23/17 00:00 IMPRESSION: Deployment of 2 common bile duct stent. Please refer to the procedure report for further details. D/ / Adan Thakur MD / Adan Thakur MD Interpreting Provider: Adan Thakur MD - VTE Documentation of Mechanical Device: Intermittent pneumatic compression device Consult Discharge Plan - Plan Referrals: Flavio Nieto MD [Primary Care Provider] - 10/05/17 11:30 am <Rajesh Santiago - Last Filed: 09/25/17 13:10> Date of Encounter: 09/25/17 - Time Spent With Patient Total time spent is greater than 50% in coordination of care (as documented) at patient's floor/unit and/or counseling patient: - Constitutional Vitals: Temp Pulse Resp BP Pulse Ox 98.0 F 90 15 138/80 91 09/25/17 07:08 09/25/17 07:08 09/25/17 07:08 09/25/17 07:08 09/25/17 07:50 Results - Labs CBC & Chem 7: 09/25/17 05:35 09/25/17 05:35 Labs: Last Result Calcium 8.2 mg/dL (8.6-10.3) L 09/25/17 05:35 Entire Visit Hgb 12.1 g/dL (11.5-15.4) 09/25/17 05:35 Hct 35.8 % (35.3-44.9) 09/25/17 05:35 PT 13.1 Seconds (9.4-12.1) H 09/23/17 05:22 Total Bilirubin 3.7 mg/dL (0.3-1.0) H 09/25/17 05:35 AST 59 Units/L (13-39) H 09/25/17 05:35 ALT 194 Units/L (7-52) H 09/25/17 05:35 Lipase > 1800 Units/L (11-82) H 09/24/17 04:30 - ABG ABG results: PT/INR, D-dimer PT 13.1 Seconds (9.4-12.1) H 09/23/17 05:22 - Attending Attestation I have personally performed a face to face evaluation on this patient. I have reviewed and agree with the care plan. History and Exam by me shows: Patient seen abdominal pain is better today on examination does has tenderness in the epigastric area. # 1Patient with cholangitis/CBD obstruction due to stones status post ERCP LFTs are improving. 2# Post-ERCP pancreatitis and pain is better today on IV fluids. Nothing by mouth for now. Once pain is better than can be started on clear.
[2017-09-25 09:58] LABS: Alanine Aminotransferase 194 Units/L (7-52); Albumin 3.4 g/dL (3.5-5.7); Albumin/Globulin Ratio 1.4 (1.1-2.2); Alkaline Phosphatase 117 Units/L (34-104); Aspartate Amino Transferase 59 Units/L (13-39); Bilirubin,Direct 2.1 mg/dL (0.0-0.2); Bilirubin,Indirect 1.6 mg/dL (0.0-1.2); Bilirubin,Total 3.7 mg/dL (0.3-1.0); Globulin 2.4 g/dL (2.4-3.5); Total Protein 5.8 g/dL (6.4-8.9)
[2017-09-25] MEDS ORDERED: Potassium Chloride 40 MEQ, Lidocaine 1% 2 ML in D5% in Water 500 ML IVPB ONE (13:51)
[2017-09-25] MEDS: cefTRIAXone 2,000 MG in Water for inj. (sterile) 20 ML 20 ML IVP SCH (20:31)
--- NOTE | 2017-09-25 21:26 | Internal Med Progress Note ---
Date of Encounter: 09/25/17 Time of Encounter: 14:07 - Assessment and plan (1) Choledocholithiasis Current Visit: Yes Status: Acute Assessment and plan: Pain now well-controlled. Leukocytosis today. GI consulted; appreciate input. S/P ERCP with 2 stents. Continue NPO, IVF, and telemetry. Continue rocephin per GI recommendations. Continue tylenol, norco, and fentanyl IV PRN for pain. Treating gas pain as per below. (2) Abdominal gas pain Current Visit: Yes Status: Acute Assessment and plan: Improved. Continue simethicone PRN gas. (3) Pancreatitis Current Visit: Yes Status: Suspected Assessment and plan: GI consulted; appreciate input. Continue NPO, IVF, and pain control as per above. Consider clear liquid diet tomorrow if pain-free. Qualifiers: Chronicity: acute Pancreatitis type: biliary Acute pancreatitis complication: unspecified Qualified Code(s): K85.10 - Biliary acute pancreatitis without necrosis or infection (4) Gross hematuria Current Visit: Yes Status: Resolved Assessment and plan: No further episodes at this time. Treating presumed UTI as per below. (5) Acute cystitis with hematuria Current Visit: Yes Status: Acute Assessment and plan: Continue rocephin as per above. Follow up on urine culture. (6) HTN (hypertension) Current Visit: Yes Status: Chronic Assessment and plan: Continue home medications. Qualifiers: Hypertension type: unspecified Qualified Code(s): I10 - Essential (primary ) hypertension (7) Hypokalemia Current Visit: Yes Status: Acute Assessment and plan: Replete potassium. Recheck BMP in AM. (8) DVT prophylaxis Current Visit: Yes Status: Acute Assessment and plan: Continue SCDs and lovenox 40 mg SQ QD. - Time Spent With Patient Total time spent is greater than 50% in coordination of care (as documented) at patient's floor/unit and/or counseling patient: less than 15 minutes - Subjective Interval history: Patient had no acute events overnight. Pain control is better today. Abdominal gas discomfort is resolved. Nausea/vomiting controlled with zofran. She denies chest pain, SOB, fever, or chills. She has no other complaints. - Constitutional Vitals: Temp Pulse Resp BP Pulse Ox 98.5 F 101 20 138/82 90 09/25/17 20:55 09/25/17 20:55 09/25/17 20:55 09/25/17 20:55 09/25/17 20:55 General appearance: Present: cooperative, A&O X 3, pleasant, no acute distress, answers questions appropriately - Respiratory Respiratory exam: Present: CTAB. Absent: accessory muscle use, rales, rhonchi, wheezes Additional comments: Normal WOB - Cardiovascular Cardiovascular exam: Present: RRR, +S1, +S2. Absent: diastolic murmur, gallop, rubs, systolic murmur - GI/Abdominal GI/Abdominal exam: Present: normal bowel sounds, soft. Absent: distended, guarding, hepatomegaly, mass, rebound, splenomegaly Additional comments: Moderate TTP across entire abdomen - Psychiatric Psychiatric exam: Present: normal affect, normal mood. Absent: agitated, anxious, depressed - Skin Skin exam: Present: dry, intact, warm. Absent: cyanosis, rash Internal Medicine: Result - Labs CBC & Chem 7: 09/25/17 05:35 09/25/17 05:35 Labs: Short CBC 09/25/17 Range/Units 05:35 WBC 20.4 H D (4.3-11.1) K/mcL Hgb 12.1 (11.5-15.4) g/dL Hct 35.8 (35.3-44.9) % Plt Count 308 (140-400) K/mcL Neutrophils # 18.2 H (1.6-8.9) K/mcL BMP 09/25/17 05:35 Sodium 135 L Potassium 2.9 L Chloride 99 Carbon Dioxide 26 BUN 13 Creatinine 0.30 L Glucose 90 Calcium 8.2 L Liver Function 09/25/17 Range/Units 05:35 Total Bilirubin 3.7 H (0.3-1.0) mg/dL Direct Bilirubin 2.1 H (0.0-0.2) mg/dL AST 59 H (13-39) Units/L ALT 194 H (7-52) Units/L Alkaline Phosphatase 117 H (34-104) Units/L Albumin 3.4 L (3.5-5.7) g/dL - ABG Interpretation ABG results: PT/INR, D-dimer PT 13.1 Seconds (9.4-12.1) H 09/23/17 05:22 Consult Discharge Plan - Plan Referrals: Flavio Nieto MD [Primary Care Provider] - 10/05/17 11:30 am
[2017-09-26] MEDS: *HR* FentaNYL (PF) 100 MCG/2 ML VIAL IVP PRN ×2 (02:34→11:52)
[2017-09-26] MEDS: 0.9 % Sodium Chloride 1,000 ML IVC SCH ×3 (03:48→16:04)
[2017-09-26] MEDS: *HR* HYDROcodone/Acet 7.5/325 mg TABLET PO PRN (05:00)
[2017-09-26] MEDS: *HR* Enoxaparin 40 MG/0.4 ML SYRINGE SQ SCH (05:01)
[2017-09-26 05:38] LABS: Basophils # 0.1 K/mcL (0.0-0.2); Basophils % 0.2 %; Eosinophils # 0.2 K/mcL (0.0-0.6); Eosinophils % 0.8 %; Hematocrit 35.4 % (35.3-44.9); Hemoglobin 11.8 g/dL (11.5-15.4); Immature Granulocytes % 0.9 % (0-4); Lymphocytes # 1.3 K/mcL (0.6-4.6); Lymphocytes % 5.5 %; Mean Corpuscular HGB Conc 33.3 g/dL (31.6-35.5); Mean Corpuscular Hemoglobin 28.7 pg (28.0-33.3); Mean Corpuscular Volume 86.1 fL (83.0-100.0); Mean Platelet Volume 9.5 fL (9.4-12.4); Monocytes # 1.2 K/mcL (0.0-1.3); Platelet Count 365 K/mcL (140-400); Red Blood Count 4.11 M/mcL (3.82-4.97); Red Cell Distribution Width 14.5 % (11.5-14.5); Segmented Neutrophils % 87.6 %
[2017-09-26 05:44] LABS: Alanine Aminotransferase 144 Units/L (7-52); Albumin 3.5 g/dL (3.5-5.7); Albumin/Globulin Ratio 1.1 (1.1-2.2); Alkaline Phosphatase 112 Units/L (34-104); Aspartate Amino Transferase 35 Units/L (13-39); BUN/Creatinine Ratio 30 (6-26); Bilirubin,Total 3.1 mg/dL (0.3-1.0); Blood Urea Nitrogen 9 mg/dL (8-23); Calcium 8.7 mg/dL (8.6-10.3); Carbon Dioxide 25 mEq/L (23-29); Chloride 99 mEq/L (98-107); Globulin 3.1 g/dL (2.4-3.5); Glucose 80 mg/dL (70-105); Osmolality,Calculated 276 (280-300); Potassium 3.1 mEq/L (3.5-5.1); Sodium 134 mEq/L (136-145); Total Protein 6.6 g/dL (6.4-8.9); eGFR For African Americans > 60 (> 60); eGFR For Non-African Americans > 60 (> 60)
[2017-09-26 06:38] LABS: Platelet Estimate Normal (Normal)
[2017-09-26 06:39] LABS: Hypersegmented Neutrophils Present (Not Present)
[2017-09-26] MEDS ORDERED: *HR* OxyCODONE/APAP 7.5/325 TABLET PO STA (07:52)
[2017-09-26] MEDS ORDERED: *HR* OxyCODONE/APAP 7.5/325 TABLET PO PRN (07:53)
[2017-09-26] MEDS: amLODIPine 5 MG TABLET PO SCH (08:16)
[2017-09-26] MEDS: hydroCHLOROthiazide 25 MG TABLET PO SCH (08:16)
[2017-09-26] MEDS: Multivit/Ca/Min/Fe/FA 1 TAB TABLET PO SCH (08:18)
[2017-09-26] MEDS ORDERED: Potassium Chloride 40 MEQ, Lidocaine 1% 2 ML in D5% in Water 500 ML IVPB ONE (10:58)
--- NOTE | 2017-09-26 11:49 | Internal Med Progress Note ---
Date of Encounter: 09/26/17 Time of Encounter: 11:47 - Assessment and plan (1) Choledocholithiasis Current Visit: Yes Status: Acute Assessment and plan: Pain worse today. Leukocytosis slightly worsened today. GI consulted; appreciate input. S/P ERCP with 2 stents. Continue NPO, IVF, and telemetry. Continue rocephin per GI recommendations. Continue tylenol and fentanyl IV PRN for pain. Switch norco to percocet for better pain control. Treating gas pain as per below. (2) Abdominal gas pain Current Visit: Yes Status: Resolved Assessment and plan: Resolved. Continue simethicone PRN gas. (3) Pancreatitis Current Visit: Yes Status: Suspected Assessment and plan: GI consulted; appreciate input. Continue NPO, IVF, and pain control as per above. Consider clear liquid diet tomorrow if pain-free. Qualifiers: Chronicity: acute Pancreatitis type: biliary Acute pancreatitis complication: unspecified Qualified Code(s): K85.10 - Biliary acute pancreatitis without necrosis or infection (4) Gross hematuria Current Visit: Yes Status: Resolved Assessment and plan: No further episodes at this time. Treating presumed UTI as per below. (5) Acute cystitis with hematuria Current Visit: Yes Status: Acute Assessment and plan: Continue rocephin as per above. Follow up on urine culture. (6) HTN (hypertension) Current Visit: Yes Status: Chronic Assessment and plan: Continue home medications. Qualifiers: Hypertension type: unspecified Qualified Code(s): I10 - Essential (primary ) hypertension (7) Hypokalemia Current Visit: Yes Status: Acute Assessment and plan: Improved. Replete potassium. Recheck BMP in AM. (8) DVT prophylaxis Current Visit: Yes Status: Acute Assessment and plan: Continue lovenox 40 mg SQ QD. - Time Spent With Patient Total time spent is greater than 50% in coordination of care (as documented) at patient's floor/unit and/or counseling patient: less than 15 minutes - Subjective Interval history: Patient had no acute events overnight. Abdominal pain is worse this AM. She denies nausea or vomiting. She denies chest pain, SOB, fever, or chills. She has no other complaints. - Constitutional Vitals: Temp Pulse Resp BP Pulse Ox 98.0 F 96 15 146/83 92 09/26/17 11:07 09/26/17 11:07 09/26/17 11:07 09/26/17 11:07 09/26/17 11:07 General appearance: Present: cooperative, mild distress (Due to pain), A&O X 3, pleasant, answers questions appropriately - Respiratory Respiratory exam: Present: CTAB. Absent: accessory muscle use, rales, rhonchi, wheezes Additional comments: Normal WOB - Cardiovascular Cardiovascular exam: Present: RRR, +S1, +S2. Absent: diastolic murmur, gallop, rubs, systolic murmur Additional comments: No BLE edema - GI/Abdominal GI/Abdominal exam: Present: normal bowel sounds, soft. Absent: distended, hepatomegaly, mass, splenomegaly Additional comments: Moderate TTP, worse in RUQ - Psychiatric Psychiatric exam: Present: normal affect, normal mood. Absent: agitated, anxious, depressed - Skin Skin exam: Present: dry, intact, warm. Absent: cyanosis, rash Internal Medicine: Result - Labs CBC & Chem 7: 09/26/17 05:06 09/26/17 05:06 Labs: Short CBC 09/26/17 Range/Units 05:06 WBC 24.0 H (4.3-11.1) K/mcL Hgb 11.8 (11.5-15.4) g/dL Hct 35.4 (35.3-44.9) % Plt Count 365 (140-400) K/mcL Neutrophils # 21.0 H (1.6-8.9) K/mcL BMP 09/26/17 05:06 Sodium 134 L Potassium 3.1 L Chloride 99 Carbon Dioxide 25 BUN 9 Creatinine 0.30 L Glucose 80 Calcium 8.7 Liver Function 09/26/17 Range/Units 05:06 Total Bilirubin 3.1 H (0.3-1.0) mg/dL AST 35 (13-39) Units/L ALT 144 H (7-52) Units/L Alkaline Phosphatase 112 H (34-104) Units/L Albumin 3.5 (3.5-5.7) g/dL - ABG Interpretation ABG results: PT/INR, D-dimer PT 13.1 Seconds (9.4-12.1) H 09/23/17 05:22 Consult Discharge Plan - Plan Referrals: Flavio Nieto MD [Primary Care Provider] - 10/05/17 11:30 am
[2017-09-26] MEDS ORDERED: *HR* OxyCODONE Immed Rel 5 MG TABLET PO STA (13:30)
[2017-09-26] MEDS: Ondansetron 4 MG/2 ML VIAL IVP PRN (13:48)
[2017-09-26] MEDS: *HR* OxyCODONE Immed Rel 5 MG TABLET PO PRN ×2 (17:47→22:29)
[2017-09-26] MEDS: cefTRIAXone 2,000 MG in Water for inj. (sterile) 20 ML 20 ML IVP SCH (19:59)
[2017-09-27] MEDS: *HR* OxyCODONE Immed Rel 5 MG TABLET PO PRN ×4 (02:55→19:05)
[2017-09-27] MEDS: 0.9 % Sodium Chloride 1,000 ML IVC SCH ×2 (02:55→08:13)
[2017-09-27 03:45] LABS: Basophils # 0.1 K/mcL (0.0-0.2); Basophils % 0.2 %; Eosinophils # 0.3 K/mcL (0.0-0.6); Eosinophils % 1.4 %; Hematocrit 32.8 % (35.3-44.9); Hemoglobin 11.1 g/dL (11.5-15.4); Immature Granulocytes % 1.2 % (0-4); Lymphocytes # 1.4 K/mcL (0.6-4.6); Lymphocytes % 6.2 %; Mean Corpuscular HGB Conc 33.8 g/dL (31.6-35.5); Mean Corpuscular Hemoglobin 29.3 pg (28.0-33.3); Mean Corpuscular Volume 86.5 fL (83.0-100.0); Mean Platelet Volume 9.4 fL (9.4-12.4); Monocytes # 1.2 K/mcL (0.0-1.3); Monocytes % 5.3 %; Neutrophils # 19.9 K/mcL (1.6-8.9); Platelet Count 360 K/mcL (140-400); Red Blood Count 3.79 M/mcL (3.82-4.97); Red Cell Distribution Width 14.4 % (11.5-14.5); Segmented Neutrophils % 85.7 %
[2017-09-27 04:27] LABS: BUN/Creatinine Ratio 29 (6-26); Blood Urea Nitrogen 8 mg/dL (8-23); Calcium 8.3 mg/dL (8.6-10.3); Carbon Dioxide 25 mEq/L (23-29); Chloride 98 mEq/L (98-107); Glucose 72 mg/dL (70-105); Osmolality,Calculated 271 (280-300); Potassium 3.3 mEq/L (3.5-5.1); Sodium 132 mEq/L (136-145); eGFR For African Americans > 60 (> 60); eGFR For Non-African Americans > 60 (> 60)
[2017-09-27] MEDS: *HR* Enoxaparin 40 MG/0.4 ML SYRINGE SQ SCH (06:16)
[2017-09-27] MEDS: hydroCHLOROthiazide 25 MG TABLET PO SCH (08:13)
[2017-09-27] MEDS: amLODIPine 5 MG TABLET PO SCH (08:13)
[2017-09-27] MEDS: Multivit/Ca/Min/Fe/FA 1 TAB TABLET PO SCH (08:14)
[2017-09-27] MEDS ORDERED: Potassium Chloride 20 MEQ, Lidocaine 1% 2 ML in D5% in Water 250 ML IVPB ONE (08:34)
[2017-09-27] MEDS ORDERED: 0.9 % Sodium Chloride 1,000 ML IVC SCH (08:45)
[2017-09-27] MEDS: D5% in 0.9% NACL 1,000 ML IVC SCH (09:55)
--- NOTE | 2017-09-27 15:22 | Internal Med Progress Note ---
Date of Encounter: 09/27/17 Time of Encounter: 15:20 - Assessment and plan (1) Choledocholithiasis Current Visit: Yes Status: Acute Assessment and plan: Pain better today. Leukocytosis slightly improved today. GI consulted; appreciate input. S/P ERCP with 2 stents. Continue NPO and telemetry. Switch IVF to D5 NS. Continue rocephin per GI recommendations. Continue tylenol, oxycodone, and fentanyl IV PRN for pain. Treating gas pain as per below. (2) Abdominal gas pain Current Visit: Yes Status: Resolved Assessment and plan: Resolved. Continue simethicone PRN gas. (3) Pancreatitis Current Visit: Yes Status: Suspected Assessment and plan: GI consulted; appreciate input. Continue NPO, IVF, and pain control as per above. Consider clear liquid diet tomorrow if pain-free. Qualifiers: Chronicity: acute Pancreatitis type: biliary Acute pancreatitis complication: unspecified Qualified Code(s): K85.10 - Biliary acute pancreatitis without necrosis or infection (4) Gross hematuria Current Visit: Yes Status: Resolved Assessment and plan: No further episodes at this time. Treating presumed UTI as per below. (5) Acute cystitis with hematuria Current Visit: Yes Status: Acute Assessment and plan: Continue rocephin as per above. Urine culture no growth final. Consider discontinuation of antibiotic once cleared by GI. (6) HTN (hypertension) Current Visit: Yes Status: Chronic Assessment and plan: Continue home medications. Qualifiers: Hypertension type: unspecified Qualified Code(s): I10 - Essential (primary ) hypertension (7) Hypokalemia Current Visit: Yes Status: Acute Assessment and plan: Improved. Replete potassium. Recheck BMP in AM. (8) DVT prophylaxis Current Visit: Yes Status: Acute Assessment and plan: Continue lovenox 40 mg SQ QD. - Time Spent With Patient Total time spent is greater than 50% in coordination of care (as documented) at patient's floor/unit and/or counseling patient: less than 15 minutes - Subjective Interval history: Patient had no acute events overnight. Abdominal pain is better today, but still requiring good amount of pain medicine per nurse. She wants to eat. She denies nausea or vomiting. She denies chest pain, SOB, fever, or chills. She has no other complaints today. - Constitutional Vitals: Temp Pulse Resp BP Pulse Ox 98.8 F 90 14 115/72 93 09/27/17 11:38 09/27/17 11:38 09/27/17 11:38 09/27/17 11:38 09/27/17 11:38 General appearance: Present: cooperative, mild distress (Due to pain), A&O X 3, pleasant, answers questions appropriately - Respiratory Respiratory exam: Present: CTAB. Absent: accessory muscle use, rales, rhonchi, wheezes Additional comments: Normal WOB - Cardiovascular Cardiovascular exam: Present: RRR, +S1, +S2. Absent: diastolic murmur, gallop, rubs, systolic murmur Additional comments: No BLE edema - GI/Abdominal GI/Abdominal exam: Present: normal bowel sounds, soft. Absent: distended, hepatomegaly, mass, splenomegaly Additional comments: Moderate TTP, worse in RUQ - Psychiatric Psychiatric exam: Present: normal affect, normal mood. Absent: agitated, anxious, depressed - Skin Skin exam: Present: dry, intact, warm. Absent: cyanosis, rash Internal Medicine: Result - Labs CBC & Chem 7: 09/27/17 03:35 09/27/17 03:35 Labs: Short CBC 09/27/17 Range/Units 03:35 WBC 23.2 H (4.3-11.1) K/mcL Hgb 11.1 L (11.5-15.4) g/dL Hct 32.8 L (35.3-44.9) % Plt Count 360 (140-400) K/mcL Neutrophils # 19.9 H (1.6-8.9) K/mcL BMP 09/27/17 03:35 Sodium 132 L Potassium 3.3 L Chloride 98 Carbon Dioxide 25 BUN 8 Creatinine 0.28 L Glucose 72 Calcium 8.3 L - ABG Interpretation ABG results: PT/INR, D-dimer PT 13.1 Seconds (9.4-12.1) H 09/23/17 05:22 Consult Discharge Plan - Plan Referrals: Flavio Nieto MD [Primary Care Provider] - 10/05/17 11:30 am
[2017-09-27] MEDS: cefTRIAXone 2,000 MG in Water for inj. (sterile) 20 ML 20 ML IVP SCH (20:31)
[2017-09-28] MEDS: D5% in 0.9% NACL 1,000 ML IVC SCH ×2 (01:57→17:06)
[2017-09-28] MEDS: *HR* OxyCODONE Immed Rel 5 MG TABLET PO PRN (02:02)
[2017-09-28 04:21] LABS: Basophils % 0.2 %; Eosinophils # 0.4 K/mcL (0.0-0.6); Eosinophils % 2.4 %; Hemoglobin 10.2 g/dL (11.5-15.4); Immature Granulocytes % 0.8 % (0-4); Lymphocytes # 1.1 K/mcL (0.6-4.6); Lymphocytes % 7.9 %; Mean Corpuscular HGB Conc 32.9 g/dL (31.6-35.5); Mean Corpuscular Hemoglobin 28.7 pg (28.0-33.3); Mean Corpuscular Volume 87.1 fL (83.0-100.0); Mean Platelet Volume 9.7 fL (9.4-12.4); Monocytes # 0.9 K/mcL (0.0-1.3); Monocytes % 6.2 %; Platelet Count 387 K/mcL (140-400); Red Blood Count 3.56 M/mcL (3.82-4.97); Red Cell Distribution Width 14.2 % (11.5-14.5); Segmented Neutrophils % 82.5 %
[2017-09-28 04:40] LABS: BUN/Creatinine Ratio 19 (6-26); Blood Urea Nitrogen 6 mg/dL (8-23); Calcium 8.3 mg/dL (8.6-10.3); Carbon Dioxide 28 mEq/L (23-29); Chloride 98 mEq/L (98-107); Glucose 119 mg/dL (70-105); Osmolality,Calculated 275 (280-300); Potassium 2.8 mEq/L (3.5-5.1); Sodium 133 mEq/L (136-145); eGFR For African Americans > 60 (> 60); eGFR For Non-African Americans > 60 (> 60)
[2017-09-28] MEDS: *HR* Enoxaparin 40 MG/0.4 ML SYRINGE SQ SCH (05:53)
[2017-09-28] MEDS ORDERED: Potassium Chloride 40 MEQ, Lidocaine 1% 2 ML in D5% in Water 500 ML IVPB ONE (07:25)
[2017-09-28] MEDS: amLODIPine 5 MG TABLET PO SCH (09:52)
[2017-09-28] MEDS: Multivit/Ca/Min/Fe/FA 1 TAB TABLET PO SCH ×2 (09:53→10:01)
[2017-09-28] MEDS: hydroCHLOROthiazide 25 MG TABLET PO SCH (09:53)
--- NOTE | 2017-09-28 12:28 | Internal Med Progress Note ---
Date of Encounter: 09/28/17 Time of Encounter: 10:07 - Assessment and plan (1) Choledocholithiasis Current Visit: Yes Status: Acute Assessment and plan: Pain continues to improve. Leukocytosis much improved today. GI consulted; appreciate input. S/P ERCP with 2 stents. Recommend starting clear liquid diet tomorrow. Continue NPO and telemetry. Continue IVF. Continue rocephin per GI recommendations. Continue tylenol, oxycodone, and fentanyl IV PRN for pain. Treating gas pain as per below. (2) Abdominal gas pain Current Visit: Yes Status: Resolved Assessment and plan: Resolved. Continue simethicone PRN gas. (3) Pancreatitis Current Visit: Yes Status: Suspected Assessment and plan: GI consulted; appreciate input. Continue NPO, IVF, and pain control as per above. Consider clear liquid diet tomorrow per GI recommendations. Qualifiers: Chronicity: acute Pancreatitis type: biliary Acute pancreatitis complication: unspecified Qualified Code(s): K85.10 - Biliary acute pancreatitis without necrosis or infection (4) Gross hematuria Current Visit: Yes Status: Resolved Assessment and plan: No further episodes at this time. Treating presumed UTI as per below. (5) Acute cystitis with hematuria Current Visit: Yes Status: Acute Assessment and plan: Continue rocephin as per above. Urine culture no growth final. Consider discontinuation of antibiotic once cleared by GI. (6) HTN (hypertension) Current Visit: Yes Status: Chronic Assessment and plan: Continue home medications. Qualifiers: Hypertension type: unspecified Qualified Code(s): I10 - Essential (primary ) hypertension (7) Hypokalemia Current Visit: Yes Status: Acute Assessment and plan: Worsened. Replete potassium. Recheck BMP in AM. (8) DVT prophylaxis Current Visit: Yes Status: Acute Assessment and plan: Continue lovenox 40 mg SQ QD. - Time Spent With Patient Total time spent is greater than 50% in coordination of care (as documented) at patient's floor/unit and/or counseling patient: less than 15 minutes - Subjective Interval history: Patient had no acute events overnight. Abdominal pain continues to improve. She denies nausea or vomiting. She denies chest pain, SOB, fever, or chills. She has no other complaints today. I spoke in person with GI Dr. Santiago, who recommends waiting one more day before starting clear liquid diet. - Constitutional Vitals: Temp Pulse Resp BP Pulse Ox 99.2 F 86 20 125/80 92 09/28/17 11:17 09/28/17 11:17 09/28/17 11:17 09/28/17 11:17 09/28/17 11:17 General appearance: Present: cooperative, A&O X 3, pleasant, no acute distress, answers questions appropriately - Respiratory Respiratory exam: Present: CTAB. Absent: accessory muscle use, rales, rhonchi, wheezes Additional comments: Normal WOB - Cardiovascular Cardiovascular exam: Present: RRR, +S1, +S2. Absent: diastolic murmur, gallop, rubs, systolic murmur Additional comments: No BLE edema - GI/Abdominal GI/Abdominal exam: Present: soft. Absent: distended, hepatomegaly, mass, splenomegaly Additional comments: Hypoactive bowel sounds, mild TTP in RUQ and RLQ - Psychiatric Psychiatric exam: Present: normal affect, normal mood. Absent: agitated, anxious, depressed - Skin Skin exam: Present: dry, intact, warm. Absent: cyanosis, rash Internal Medicine: Result - Labs CBC & Chem 7: 09/28/17 03:33 09/28/17 03:33 Labs: Short CBC 09/28/17 Range/Units 03:33 WBC 14.5 H (4.3-11.1) K/mcL Hgb 10.2 L (11.5-15.4) g/dL Hct 31.0 L (35.3-44.9) % Plt Count 387 (140-400) K/mcL Neutrophils # 12.0 H (1.6-8.9) K/mcL BMP 09/28/17 03:33 Sodium 133 L Potassium 2.8 L Chloride 98 Carbon Dioxide 28 BUN 6 L Creatinine 0.31 L Glucose 119 H Calcium 8.3 L - ABG Interpretation ABG results: PT/INR, D-dimer PT 13.1 Seconds (9.4-12.1) H 09/23/17 05:22 Consult Discharge Plan - Plan Referrals: Flavio Nieto MD [Primary Care Provider] - 10/05/17 11:30 am
[2017-09-28] MEDS ORDERED: *HR* Dextrose 50 % in Water (Syg) 50 ML SYRINGE IVP PRN (15:35)
[2017-09-28] MEDS ORDERED: Dextrose Gel 15 GM/37.5 ML TUBE PO PRN ×2 (15:35)
[2017-09-28] MEDS ORDERED: D5% in Water 1,000 ML IVC PRN (15:35)
[2017-09-28] MEDS: Insulin LISPRO 300 UNITS/3 ML VIAL SQ SCH (18:40)
[2017-09-28] MEDS: cefTRIAXone 2,000 MG in Water for inj. (sterile) 20 ML 20 ML IVP SCH (20:32)
[2017-09-29] MEDS: Insulin LISPRO 300 UNITS/3 ML VIAL SQ SCH ×2 (00:50→07:33)
[2017-09-29 06:19] LABS: Basophils % 0.3 %; Eosinophils # 0.3 K/mcL (0.0-0.6); Eosinophils % 2.5 %; Hematocrit 32.5 % (35.3-44.9); Hemoglobin 10.9 g/dL (11.5-15.4); Lymphocytes # 1.3 K/mcL (0.6-4.6); Lymphocytes % 11.2 %; Mean Corpuscular HGB Conc 33.5 g/dL (31.6-35.5); Mean Corpuscular Volume 86.4 fL (83.0-100.0); Mean Platelet Volume 9.4 fL (9.4-12.4); Monocytes # 0.9 K/mcL (0.0-1.3); Monocytes % 7.9 %; Neutrophils # 8.8 K/mcL (1.6-8.9); Nucleated Red Blood Cells 0.2 /100 WBC (0); Platelet Count 474 K/mcL (140-400); Red Blood Count 3.76 M/mcL (3.82-4.97); Red Cell Distribution Width 14.1 % (11.5-14.5); Segmented Neutrophils % 77.1 %
[2017-09-29 06:40] LABS: BUN/Creatinine Ratio 20 (6-26); Blood Urea Nitrogen 5 mg/dL (8-23); Calcium 8.5 mg/dL (8.6-10.3); Carbon Dioxide 25 mEq/L (23-29); Chloride 101 mEq/L (98-107); Glucose 118 mg/dL (70-105); Osmolality,Calculated 274 (280-300); Potassium 3.3 mEq/L (3.5-5.1); Sodium 133 mEq/L (136-145); eGFR For African Americans > 60 (> 60); eGFR For Non-African Americans > 60 (> 60)
[2017-09-29] MEDS: *HR* Enoxaparin 40 MG/0.4 ML SYRINGE SQ SCH (06:53)
[2017-09-29 06:58] VITALS: BP 111/71
[2017-09-29] MEDS: Multivit/Ca/Min/Fe/FA 1 TAB TABLET PO SCH (08:15)
[2017-09-29] MEDS: hydroCHLOROthiazide 25 MG TABLET PO SCH (08:19)
--- NOTE | 2017-09-29 08:59 | Discharge Summary ---
- NOTES TO OUTPATIENT PROVIDER Notes to Outpatient Provider: f/u with GI Dr. Santiago in one week. Please take soft diet only for another 2-3 days Date of Encounter: 09/29/17 Time of Encounter: 08:53 - Discharge Diagnosis (1) Cholangitis Priority: Secondary Status: Acute (2) Pancreatitis Priority: Primary Status: Suspected Qualifiers: Chronicity: acute Pancreatitis type: biliary Acute pancreatitis complication: unspecified Qualified Code(s): K85.10 - Biliary acute pancreatitis without necrosis or infection (3) Choledocholithiasis Priority: Primary Status: Acute (4) Hypokalemia Priority: Primary Status: Acute (5) Gross hematuria Priority: Secondary Status: Resolved (6) HTN (hypertension) Priority: Secondary Status: Chronic Qualifiers: Hypertension type: unspecified Qualified Code(s): I10 - Essential (primary ) hypertension (7) DVT prophylaxis Priority: Secondary Status: Acute (8) Abdominal gas pain Priority: Secondary Status: Resolved (9) Acute cystitis with hematuria Priority: Secondary Status: Acute Hospital course: Ms. Guerra is a 67 year old female with past medical history of HLD, HTN, and migraines who presents to [facility] on 09/22/2017 as a transfer from [facility] emergency department for worsening abdominal pain and epiagstric pain. Her initial total bili of 10.6, AST of 165, ALT of 460, direct bilirubin of 6.23, alkaline phosphatase of 146. MRCP demonstrated choledocholithiasis with marked dilation of the common bile duct and common hepatic duct as well as mild dilation of the central intrahepatic bile duct. Pt was admitted here and evaluated by our GI Dr. Santiago who performed ERCP with stone extraction, biliary sphincterotomy as well as a couple of stents placed in. She does have cholangitis too. She was started on Rocephin here. Her abd pain improved today and tolerating pO intake well now. So will d/c her home with PO Levaquin for another 4 days total 10 days course of abx along with Flagyl. - Time Spent with Patient Total time spent providing and/or coordinating discharge services: - Discharge Medications Prescriptions: OxyCODONE Immed Rel [Roxicodone 5 MG] 5 mg PO Q6HR PRN 5 Days #10 tablet PRN Reason: Severe Pain Home Medications: Amlodipine Besylate 10 mg PO DAILY 09/23/17 [History] Loperamide HCl [Imodium A-D] 2 mg PO DAILY PRN 09/23/17 [History] Multivit-Min/FA/Lycopen/Lutein [A Thru Z Select Multivit Tab] 1 tab PO DAILY [History] Potassium Chloride [K-Tab ER] 20 meq PO DAILY 09/23/17 [History] OxyCODONE Immed Rel [Roxicodone 5 MG] 5 mg PO Q6HR PRN 5 Days #10 tablet [Rx] hydroCHLOROthiazide [Hydrochlorothiazide] 12.5 mg PO DAILY tablet 09/29/17 [Rx] Allergies/Adverse Reactions: 3 Allergy/AdvReac Type Severity Reaction Status Date / Time atorvastatin [From Lipitor] Allergy Cramping Verified 09/22/17 22:05 of the Muscles Sulfa (Sulfonamide Allergy Hives Verified 09/22/17 22:05 Antibiotics) Aspertame Allergy Headache Uncoded 09/22/17 22:17 Date of admission: 09/23/17 03:40 Primary care physician: Flavio Nieto MD Consults: 09/23/17 01:26 Consult to Gastroenterology [CONS] Routine Consulting Provider: [facility] [place] Reason for Consult: choledocolithiasis/transfer from [facility] there spoke with Dr. Santiago for ERCP tomorrow. Call Completed: Yes - Constitutional Vitals: Temp Pulse Resp BP Pulse Ox 98 F 88 20 111/71 92 09/29/17 06:51 09/29/17 06:51 09/29/17 06:51 09/29/17 06:51 09/29/17 06:51 General appearance: Present: cooperative, A&O X 3, pleasant, no acute distress, answers questions appropriately - Patient Status Disposition: Home, Self-Care Condition: Good Overall status at discharge: patient is back to baseline - Discharge Instructions Follow Up With: Flavio Nieto MD [Primary Care Provider] - 10/05/17 11:30 am Rajesh Santiago MD [Partnered Physician] - - Diet and Activity Activity: increase activity as tolerated Diet: low salt diet - VTE Documentation of Mechanical Device: Intermittent pneumatic compression device
== END 2017-09-29 11:50 | disposition home or self-care (01) | DRG 444 ==
LOC: 2ANU → SUATTDRO 09-23 03:40
PROVIDERS: ADMIT Internal Medicine; ATTEND Family Medicine

== ENCOUNTER 2021-09-27 11:49 | Observation (INO) ==
[2021-09-27] MEDS ORDERED: Nitroglycerin 0.4 MG TAB.SUBL SL PRN (15:18)
[2021-09-27] MEDS ORDERED: Melatonin 3 MG TABLET PO PRN (15:18)
[2021-09-27] MEDS ORDERED: Naloxone 0.4 MG/ML INJ IVP PRN (15:18)
[2021-09-27] MEDS ORDERED: Ondansetron 4 MG/2 ML VIAL IVP PRN (15:18)
[2021-09-27] MEDS ORDERED: Perflutren Lipid Microsphere 1.3 ML in 0.9 % Sodium Chloride 8.7 ML IVP PRN (15:18)
[2021-09-27] MEDS: Metoprolol XL (24 HR) Succ 25 MG TAB.ER.24H PO SCH (16:28)
[2021-09-27] MEDS ORDERED: Acetaminophen 325 MG TABLET PO ONE (19:05)
[2021-09-28 03:56] LABS: Basophils % 0.3 %; Eosinophils # 0.4 K/mcL (0.0-0.6); Eosinophils % 4.2 %; Hematocrit 40.8 % (35.3-44.9); Hemoglobin 13.6 g/dL (11.5-15.4); Immature Granulocytes % 0.2 % (0-4); Lymphocytes # 3.2 K/mcL (0.6-4.6); Lymphocytes % 35.3 %; Mean Corpuscular HGB Conc 33.3 g/dL (31.6-35.5); Mean Corpuscular Hemoglobin 29.7 pg (28.0-33.3); Mean Corpuscular Volume 89.1 fL (83.0-100.0); Mean Platelet Volume 9.3 fL (9.4-12.4); Monocytes # 0.8 K/mcL (0.0-1.3); Monocytes % 9.2 %; Neutrophils # 4.6 K/mcL (1.6-8.9); Platelet Count 335 K/mcL (140-400); Red Blood Count 4.58 M/mcL (3.82-4.97); Red Cell Distribution Width 13.2 % (11.5-14.5); Segmented Neutrophils % 50.8 %
[2021-09-28 04:08] LABS: INR 1.2; Prothrombin Time 12.9 Seconds (9.4-12.1)
[2021-09-28 04:15] LABS: Chol/HDL Ratio 4.5 (0-4.9)
[2021-09-28 04:16] LABS: Alanine Aminotransferase 13 Units/L (7-52); Albumin/Globulin Ratio 1.5 (1.1-2.2); Alkaline Phosphatase 90 Units/L (34-104); Aspartate Amino Transferase 16 Units/L (13-39); BUN/Creatinine Ratio 20 (6-26); Bilirubin,Total 0.7 mg/dL (0.3-1.0); Blood Urea Nitrogen 18 mg/dL (8-23); Calcium 9.4 mg/dL (8.6-10.3); Carbon Dioxide 24 mEq/L (23-29); Chloride 103 mEq/L (98-107); Globulin 2.7 g/dL (2.4-3.5); Glucose 95 mg/dL (70-105); Osmolality,Calculated 284 (280-300); Potassium 3.7 mEq/L (3.5-5.1); Sodium 136 mEq/L (136-145); Total Protein 6.7 g/dL (6.4-8.9); eGFR For African Americans > 60 (> 60); eGFR For Non-African Americans > 60 (> 60)
[2021-09-28 04:36] LABS: Estimated Average Glucose 111 mg/dl; Hemoglobin A1C 5.5 %
[2021-09-28] MEDS ORDERED: Cholecalciferol (D-3) 1,000 UNIT (25MCG) TABLET PO SCH (09:00)
[2021-09-28] MEDS ORDERED: Aspirin 81 MG TAB.CHEW PO SCH (09:00)
[2021-09-28] MEDS ORDERED: Regadenoson 0.4 MG/5 ML SYRINGE IVP ONE (10:45)
[2021-09-28] MEDS: Metoprolol XL (24 HR) Succ 25 MG TAB.ER.24H PO SCH (12:22)
[2021-09-28 12:26] VITALS: BP 145/87; PULSE 81; TEMP 97.8; O2SAT 97
== END 2021-09-28 15:58 | disposition home or self-care (01) ==
LOC: 3BNU
PROVIDERS: ADMIT Internal Medicine; ATTEND Internal Medicine